=== PATIENT | female | born 1985 | race African-American/Black ===

== ENCOUNTER 2023-03-01 04:02 | Emergency (ER) | payer BC, OTHER ==
[2023-03-01 05:28] LABS: HBSAB Concentration Greater than 1000.00 mIU/mL; Hep B Surf AB Reactive (NonReactive)
[2023-03-01 05:35] LABS: HIV (1/2) Antibody/Antigen Non-Reactive (NonReactive); HIV 1/2 INDEX 0.28 S/CO (<1.00); Hep C IgG Ab Non-Reactive S/CO (NonReactive); Hep C Index 0.16 S/CO (0-0.79)
== END 2023-03-01 04:31 | disposition home or self-care (01) ==
LOC: ERS 04:02
DX: S61.239A Puncture wound without foreign body of unspecified finger without damage to nail, initial encounter (principal); X58.XXXA Exposure to other specified factors, initial encounter
CPT/HCPCS: 36415; 99283

== ENCOUNTER 2023-06-16 19:04 | Inpatient (IN) | payer BC, OTHER ==
[2023-06-16] MEDS ORDERED: Morphine 4 MG/ML VIAL ONE ×2 (19:16→19:34)
[2023-06-16] MEDS ORDERED: Ondansetron PF 4 MG/2 ML Vial ONE (19:16)
[2023-06-16 19:40] LABS: #Basophils 0.1 thou/uL (0.0-0.2); #Eosinphils 0.1 thou/uL (0.0-0.7); #Monocytes 1.2 thou/uL (0.11-0.59); %Basophils 0.5 % (0.0-1.0); %Monocytes 8.8 % (0.0-10.0); %Neutrophils 45.5 % (42.0-75.0); Hematocrit 38.3 % (36.0-47.0); Hemoglobin 13.3 g/dL (12.0-16.0); Mean Corpuscular HGB CONC 34.7 g/dL (32.0-36.0); Mean Corpuscular Hemoglobin 34.3 pg (27.0-31.0); Mean Corpuscular Volume 98.7 fl (78.0-98.0); Mean Platelet Volume 9.2 fL (7.4-10.4); Platelet Count 405 10x3/uL (130-400); Red Blood Cell (RBC) Count 3.88 mill/uL (4.20-5.40); White Blood Cell (WBC) Count 13.2 10x3/uL (4.8-10.8)
[2023-06-16 20:18] LABS: ALT (SGPT) 10 U/L (8-55); AST (SGOT) 19 U/L (5-34); Albumin 4.7 g/dL (3.5-5.0); Alkaline Phosphatase 65 U/L (40-110); Anion Gap 14 mmol/L (10-20); BUN (Urea Nitrogen) 13 mg/dL (7.0-18.7); Bilirubin, Total 0.5 mg/dL (0.2-1.2); Calc. Creatinine Clearance 0 mL/min (70-130); Calcium 9.8 mg/dL (7.8-10.44); Carbon Dioxide 21 mmol/L (22-29); Chloride 105 mmol/L (98-107); Estimated GFR 67; Globulin 3.6 g/dL (2.4-3.5); Glucose 82 mg/dL (70-105); Lipase 47 U/L (8-78); Potassium 4.3 mmol/L (3.5-5.1); Protein, Total 8.3 g/dL (6.0-8.3); Sodium 136 mmol/L (136-145)
[2023-06-16 20:26] LABS: Troponin I Less than 0.010 ng/mL (< 0.028)
[2023-06-16] MEDS ORDERED: HYDROmorphone 0.5 MG/0.5 ML SYRINGE ONE ×2 (20:40→23:14)
[2023-06-16] MEDS ORDERED: Mag-Al 1200 mg/1200 mg/30 ML UDCUP ONE (22:39)
[2023-06-17] MEDS ORDERED: Ondansetron PF 4 MG/2 ML Vial IVP PRN (00:15)
[2023-06-17] MEDS ORDERED: Acetaminophen 325 MG TAB PO PRN (00:15)
[2023-06-17] MEDS ORDERED: Ondansetron ODT 4 MG TAB SL PRN (00:15)
[2023-06-17] MEDS: Morphine 2 MG/ML VIAL SLOW IVP PRN (01:54)
[2023-06-17] MEDS: Ondansetron ODT 4 MG TAB PO PRN (01:54)
[2023-06-17] MEDS: Lidocaine 2% Viscous Solution 10 ML, Aluminum & Magnesium Hydroxide 30 ML SSW SCH (01:56)
[2023-06-17] MEDS: Dextrose 5%-Lactated Ringers 1,000 ML IV SCH (01:57)
[2023-06-17] MEDS: Acetaminophen 325 MG TAB PO PRN (02:05)
[2023-06-17 02:15] VITALS: BMI 39.8
[2023-06-17 06:51] LABS: #Eosinphils 0.1 thou/uL (0.0-0.7); #Neutrophils 4.5 thou/uL (1.40-6.50); %Basophils 0.4 % (0.0-1.0); %Eosinophils 1.1 % (0.0-10.0); %Lymphocytes 44.6 % (21.0-51.0); %Monocytes 9.8 % (0.0-10.0); Hemoglobin 12.4 g/dL (12.0-16.0); Mean Corpuscular HGB CONC 33.5 g/dL (32.0-36.0); Mean Corpuscular Hemoglobin 33.7 pg (27.0-31.0); Mean Corpuscular Volume 100.5 fl (78.0-98.0); Mean Platelet Volume 9.1 fL (7.4-10.4); Platelet Count 346 10x3/uL (130-400); Red Blood Cell (RBC) Count 3.68 mill/uL (4.20-5.40); White Blood Cell (WBC) Count 10.3 10x3/uL (4.8-10.8)
[2023-06-17 07:05] LABS: ALT (SGPT) 8 U/L (8-55); AST (SGOT) 15 U/L (5-34); Alkaline Phosphatase 56 U/L (40-110); Anion Gap 12 mmol/L (10-20); BUN (Urea Nitrogen) 9 mg/dL (7.0-18.7); Bilirubin, Total 0.4 mg/dL (0.2-1.2); Calc. Creatinine Clearance 116 mL/min (70-130); Calcium 9.2 mg/dL (7.8-10.44); Carbon Dioxide 25 mmol/L (22-29); Chloride 105 mmol/L (98-107); Estimated GFR 81; Globulin 2.8 g/dL (2.4-3.5); Glucose 115 mg/dL (70-105); Potassium 3.9 mmol/L (3.5-5.1); Protein, Total 6.8 g/dL (6.0-8.3); Sodium 138 mmol/L (136-145)
[2023-06-17] MEDS: levETIRAcetam 500 MG TAB PO SCH (08:19)
[2023-06-17] MEDS: Famotidine/PF 20 mg/2ml Vial SLOW IVP SCH (08:19)
[2023-06-17] MEDS: Famotidine 20 MG TAB PO SCH (08:19)
[2023-06-17] MEDS: Ondansetron PF 4 MG/2 ML Vial IVP PRN (13:57)
[2023-06-18 06:11] LABS: #Basophils 0.1 thou/uL (0.0-0.2); #Eosinphils 0.2 thou/uL (0.0-0.7); #Monocytes 0.7 thou/uL (0.11-0.59); #Neutrophils 3.8 thou/uL (1.40-6.50); %Basophils 0.6 % (0.0-1.0); %Eosinophils 1.8 % (0.0-10.0); %Lymphocytes 42.8 % (21.0-51.0); %Monocytes 8.7 % (0.0-10.0); %Neutrophils 45.9 % (42.0-75.0); Hematocrit 37.3 % (36.0-47.0); Hemoglobin 12.6 g/dL (12.0-16.0); Mean Corpuscular HGB CONC 33.8 g/dL (32.0-36.0); Mean Corpuscular Hemoglobin 33.6 pg (27.0-31.0); Mean Corpuscular Volume 99.5 fl (78.0-98.0); Platelet Count 325 10x3/uL (130-400); Red Blood Cell (RBC) Count 3.75 mill/uL (4.20-5.40); White Blood Cell (WBC) Count 8.3 10x3/uL (4.8-10.8)
[2023-06-18 06:58] LABS: Anion Gap 12 mmol/L (10-20); BUN (Urea Nitrogen) 9 mg/dL (7.0-18.7); Calc. Creatinine Clearance 103 mL/min (70-130); Calcium 9.2 mg/dL (7.8-10.44); Carbon Dioxide 22 mmol/L (22-29); Chloride 106 mmol/L (98-107); Estimated GFR 70; Glucose 89 mg/dL (70-105); Potassium 4.2 mmol/L (3.5-5.1); Sodium 136 mmol/L (136-145)
[2023-06-18] MEDS: ALPRAZolam 1 MG TAB PO SCH (10:34)
[2023-06-18] MEDS: Lactated Ringer's 1,000 ML IV SCH (10:34)
[2023-06-18] MEDS: Lidocaine 2% Viscous 10 mL, Alum & Magn 30 mL SSW SCH (14:34)
[2023-06-18 17:13] VITALS: BP 108/66; TEMP 98.3
[2023-06-18] MEDS ORDERED: Amitriptyline HCl 100 MG TAB PO SCH (21:00)
[2023-06-18] MEDS ORDERED: ALPRAZolam 1 MG TAB PO SCH (21:00)
== END 2023-06-18 18:10 | disposition home or self-care (01) | DRG 391 ==
LOC: ERS 19:04 → T4-B 23:55 → OBSVTOIN 06-18 09:10
PROVIDERS: ADMIT Student in an Organized Health Care Education/Training Program; ATTEND Internal Medicine
DX: K29.70 Gastritis, unspecified, without bleeding (principal); K85.90 Acute pancreatitis without necrosis or infection, unspecified; F32.A Depression, unspecified; G40.909 Epilepsy, unspecified, not intractable, without status epilepticus; D72.829 Elevated white blood cell count, unspecified; Z98.890 Other specified postprocedural states; Z88.1 Allergy status to other antibiotic agents; Z91.013 Allergy to seafood
CPT/HCPCS: 36415; 71045; 74177; 80048; 80053; 83605; 83690; 84484; 85025; 93005; 96361; 96374; 96375; 96376; G0378; J1170; J2270; J2272; J2405; J7120; Q0162